=== PATIENT | female | born 1995 | race Hispanic/Latino ===

== ENCOUNTER 2021-11-17 15:41 | Emergency (ER) | payer MEDICAID ==
[~2021-11-17] VITALS: Ht 152.4 cm; Wt 49.9 kg
[~2021-11-17 15:41] MED LIST: PREN-196 PO
[2021-11-17 15:48] VITALS: BP 91/52
[2021-11-17] MEDS ORDERED: D-ME1POW16 PO (16:53)
== END 2021-11-17 17:07 | disposition home or self-care (01) ==
LOC: EDH 15:41
DX: U07.1 COVID-19 (principal); J06.9 Acute upper respiratory infection, unspecified; Z98.890 Other specified postprocedural states; Z79.899 Other long term (current) drug therapy
CPT/HCPCS: 99283; 87635; 87880; 87804 ×2; C9803

== ENCOUNTER 2022-04-29 06:06 | Observation (INO) | payer MEDICAID ==
[~2022-04-29] VITALS: Ht 152.4 cm; Wt 54.5 kg
[~2022-04-29 06:06] MED LIST changes: +D-ME1POW16 PO
[2022-04-29 06:11] VITALS: BP 96/66
[2022-04-29] MEDS ORDERED: LACTATED RINGERS 1000ML IV PRN (06:30)
[2022-04-29 06:39] LABS: APPEARANCE,URINE CLEAR (CLEAR); BILIRUBIN,URINE NEGATIVE (NEGATIVE); COLOR,URINE YELLOW (YELLOW); GLUCOSE, URINE (UA) NEGATIVE (NEGATIVE); KETONES,URINE NEGATIVE (NEGATIVE); LEUKOCYTE ESTERASE ,URINE NEGATIVE Leu/uL (NEGATIVE); NITRATE,URINE NEGATIVE (NEGATIVE); OCCULT BLOOD,URINE NEGATIVE (NEGATIVE); PROTEIN,URINE NEGATIVE (NEGATIVE); UROBILINOGEN,URINE 3 mg/dL (0.2-1.0)
[2022-04-29 06:47] LABS: AMPHET/METH SCREEN,URINE NEGATIVE (NEGATIVE); BARBITURATE SCREEN, URINE NEGATIVE (NEGATIVE); BENZODIAZEPINES SCREEN,URINE NEGATIVE (NEGATIVE); CANNABINOID SCREEN,URINE NEGATIVE (NEGATIVE); COCAINE SCREEN,URINE NEGATIVE (NEGATIVE); OPIATE SCREEN,URINE NEGATIVE (NEGATIVE); PHENCYCLIDINE SCREEN,URINE NEGATIVE (NEGATIVE)
[2022-04-29 07:13] LABS: BACTERIA,URINE FEW /HPF (None Seen); MUCUS,URINE RARE LPF (None Seen); RBC,URINE 0-1 /HPF (0-1); SQUAMOUS EPITHELIAL CELL,UR FEW /HPF (0-2); WBC,URINE 0-1 /HPF (0-1)
== END 2022-04-29 07:40 | disposition home or self-care (01) ==
LOC: EDH 06:06 → LDH 06:07
PROVIDERS: ADMIT Obstetrics & Gynecology; ATTEND Obstetrics & Gynecology
DX: O36.8130 Decreased fetal movements, third trimester, not applicable or unspecified (principal); Z3A.38 38 weeks gestation of pregnancy
CPT/HCPCS: 80305; 81001; G0379; G0378